=== PATIENT | female | born 1955 | race Caucasian/White ===

== ENCOUNTER → 2023-12-13 08:42 | Outpatient (REF) | payer MEDICARE, SELFPAY | LOC: WDC 08:42 | PROVIDERS: ATTENDING PHYSICIAN Family Medicine | DX: Z12.31 Encounter for screening mammogram for malignant neoplasm of breast (principal) | CPT/HCPCS: 77063; 77067 ==

== ENCOUNTER → 2024-11-27 10:12 | Outpatient (REF) | payer MEDICARE, SELFPAY | LOC: WDC 10:12 | PROVIDERS: ATTENDING PHYSICIAN Obstetrics & Gynecology; FAMILY PHYSICIAN Family Medicine | DX: Z12.31 Encounter for screening mammogram for malignant neoplasm of breast (principal) | CPT/HCPCS: 77063; 77067 ==